=== PATIENT | female | born 1970 | race Caucasian/White ===

== ENCOUNTER 2016-12-07 03:31 | Emergency (ER) | payer OTHER ==
[2016-12-07] MEDS ORDERED: Ondansetron ODT 4 MG TAB ONE (03:41)
== END 2016-12-07 04:04 | disposition home or self-care (01) ==
LOC: BURERS 03:31
DX: A08.4 Viral intestinal infection, unspecified (principal); F32.9 Major depressive disorder, single episode, unspecified; Z79.899 Other long term (current) drug therapy
CPT/HCPCS: 99283; Q0162